=== PATIENT | male | born 1945 | race African-American/Black ===

== ENCOUNTER 2019-01-04 15:33 | Emergency (ER) | payer MEDICARE, OTHER ==
[~2019-01-04] VITALS: Ht 172.7 cm; Wt 73.9 kg
[2019-01-04] MEDS ORDERED: ALLOPURINOL 10100 M1 PO (15:44)
[2019-01-04] MEDS ORDERED: CARDIZEM CD240 MG PO (15:45)
[2019-01-04] MEDS ORDERED: LISINOPRIL40 MG PO (15:45)
[2019-01-04] MEDS ORDERED: ASPIRIN325 PO (15:45)
[2019-01-04] MEDS ORDERED: PREVACID15 MG PO (15:46)
[2019-01-04] MEDS ORDERED: TERAZOSIN HCL10 MG PO (15:46)
[2019-01-04 16:29] LABS: HEMATOCRIT 31.4 % (42.0-52.0); NUCLEATED RBCS 0 /100WBC
[2019-01-04 16:31] LABS: ABSOLUTE BASOPHILS 0.1 thou/uL (0.0-0.2); ABSOLUTE EOSINOPHILS 0.4 thou/uL (0.0-0.7); ABSOLUTE MONOCYTES 0.5 thou/uL (0.0-1.2); ABSOLUTE NEUTROPHILS 2.9 thou/uL (1.6-8.1); BASOPHILS 2.2 %; EOSINOPHILS 8.6 %; HEMOGLOBIN 9.9 gm/dL (14.0-18.0); LYMPHOCYTES 19.6 %; MCH 24.5 pg (26.0-34.0); MCHC 31.5 g/dL (28.0-37.0); MCV 77.5 fL (80.0-100.0); MONOCYTES 10.6 %; MPV 10.1 fl. (7.2-11.1); PLATELET COUNT* 211 thou/uL (150-400); RBC 4.05 mil/uL (4.50-6.00); RDW-CV 16.7 % (10.5-14.5); WBC 4.9 thou/uL (4.0-11.0)
[2019-01-04 16:38] LABS: APTT 36.1 Seconds (25.0-31.3); INR 1.1
[2019-01-04 16:51] LABS: ALBUMIN 3.5 g/dL (3.4-5.0); ALKALINE PHOSPHATASE 78 U/L (46-116); ANION GAP 14 mmol/L (7-16); BUN 52 mg/dL (7-18); CALCIUM 8.4 mg/dL (8.5-10.1); CHLORIDE 103 mmol/L (98-107); CO2 24 mmol/L (21-32); CREATININE 9.8 mg/dL (0.6-1.3); GLUCOSE 88 mg/dL (70-99); NT-PRO BRAIN NAT PEPTIDE > 35000 pg/mL (<300); POTASSIUM 5.1 mmol/L (3.5-5.1); SGOT 13 U/L (15-37); SGPT 10 U/L (30-65); SODIUM 141 mmol/L (136-145); TOTAL BILIRUBIN 0.3 mg/dL (<0.1-1.0); TOTAL PROTEIN 6.8 g/dL (6.4-8.2)
[2019-01-04 17:33] VITALS: BP 128/83
--- NOTE | 2019-01-05 13:41 | EKG ---
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: : 1945 Requested By: Harshad Lawson Order Number: [id number] MD: Kye Ayoub Measurements Intervals [place] Rate: 74 P: -2 MA: 226 QRS: -64 QRSD: 133 T: 108 QT: 410 QTc: 455 Interpretive Statements Sinus rhythm Prolonged MA interval Probable left atrial enlargement Nonspecific intraventricular conduction delay Inferior infarct, old, possible Anterior ST elevation, probably due to LVH Baseline wander in lead(s) V6 No previous ECG available for comparison Electronically Signed On 01-05-2019 13:40:50 CDT by Kye Ayoub [email or web address] <ELECTRONICALLY SIGNED> By: Kye Ayoub MD, FACC 01/05/19 1340 1600 1600 Kye Ayoub MD, FAC /EPI
== END 2019-01-04 17:35 | disposition home or self-care (01) ==
LOC: M.ERS 15:33
PROVIDERS: Family Medicine
DX: I10 Essential (primary) hypertension (principal); Z77.22 Contact with and (suspected) exposure to environmental tobacco smoke (acute) (chronic); Z96.653 Presence of artificial knee joint, bilateral

== ENCOUNTER 2019-03-18 10:11 | Emergency (ER) | payer MEDICARE, OTHER ==
[~2019-03-18] VITALS: Ht 165.1 cm; Wt 74.8 kg
[~2019-03-18 10:11] MED LIST: ALLOPURINOL 10100 M1 PO; ASPIRIN325 PO; CARDIZEM CD240 MG PO; LISINOPRIL40 MG PO; PREVACID15 MG PO; TERAZOSIN HCL10 MG PO
[2019-03-18] MEDS ORDERED: HYDRALAZINE 2525 MG (10:23)
[2019-03-18 10:50] LABS: URINE BILIRUBIN NEGATIVE (Negative); URINE BLOOD NEGATIVE (Negative); URINE CLARITY CLEAR; URINE COLOR YELLOW; URINE GLUCOSE-RANDOM NEGATIVE (Negative); URINE KETONES NEGATIVE (Negative); URINE LEUKOCYTES-REFLEX NEGATIVE (Negative); URINE NITRITE-REFLEX NEGATIVE (Negative); URINE PROTEIN 2+ (Negative); URINE SPECIFIC GRAVITY 1.015 (1.005-1.030); URINE UROBILINOGEN 0.2 E.U./dl (0.2-1.0)
[2019-03-18 11:17] LABS: SQUAMOUS 0-3 Few /LPF (0-3); URINE WBC-REFLEX 0-5 Rare /HPF (0-5)
[2019-03-18 11:18] LABS: BACTERIA-REFLEX 1-9 Few /HPF (None Seen); CASTS None Seen /LPF (None Seen); CRYSTALS None Seen /LPF (None Seen); MUCUS None Seen strn/LPF (None Seen); URINE RBC 0-2 Rare /HPF (0-2)
[2019-03-18 11:56] VITALS: BP 145/89
== END 2019-03-18 11:56 | disposition home or self-care (01) ==
LOC: M.ERS 10:11
PROVIDERS: Family Medicine
DX: N50.812 Left testicular pain (principal); N50.811 Right testicular pain; I10 Essential (primary) hypertension; Z77.22 Contact with and (suspected) exposure to environmental tobacco smoke (acute) (chronic); Z96.653 Presence of artificial knee joint, bilateral

== ENCOUNTER 2019-07-22 03:47 | Inpatient (IN) | payer MEDICARE, OTHER ==
[~2019-07-22] VITALS: Ht 172.7 cm; Wt 70.8 kg
[~2019-07-22 03:47] MED LIST changes: +HYDRALAZINE 2525 MG
[2019-07-22 03:55] VITALS: BP 109/54
[2019-07-22] MEDS ORDERED: LITE COAT ASPI325 MG PO (04:00)
[2019-07-22 04:28] LABS: ABSOLUTE BASOPHILS 0.1 thou/uL (0.0-0.2); ABSOLUTE EOSINOPHILS 0.2 thou/uL (0.0-0.7); ABSOLUTE LYMPHOCYTES 1.1 thou/uL (0.8-5.3); ABSOLUTE MONOCYTES 0.7 thou/uL (0.0-1.2); ABSOLUTE NEUTROPHILS 5.5 thou/uL (1.6-8.1); EOSINOPHILS 3.3 %; HEMATOCRIT 25.3 % (42.0-52.0); HEMOGLOBIN 8.1 gm/dL (14.0-18.0); LYMPHOCYTES 14.1 %; MCH 24.9 pg (26.0-34.0); MCHC 32.2 g/dL (28.0-37.0); MCV 77.4 fL (80.0-100.0); MONOCYTES 9.1 %; NUCLEATED RBCS 0 /100WBC; PLATELET COUNT* 140 thou/uL (150-400); POLYS 72.5 %; RBC 3.27 mil/uL (4.50-6.00); RDW-CV 16.8 % (10.5-14.5); WBC 7.5 thou/uL (4.0-11.0)
[2019-07-22 04:40] LABS: ANION GAP 10 mmol/L (7-16); BUN 27 mg/dL (7-18); CALCIUM 8.3 mg/dL (8.5-10.1); CHLORIDE 103 mmol/L (98-107); CO2 31 mmol/L (21-32); CREATININE 7.5 mg/dL (0.6-1.3); GLUCOSE 107 mg/dL (70-99); POTASSIUM 4.1 mmol/L (3.5-5.1); SODIUM 144 mmol/L (136-145)
[2019-07-22 04:42] LABS: APTT 29.4 Seconds (25.0-31.3); INR 1.1; PROTIME 11.3 Seconds (9.20-11.50)
[2019-07-22 04:49] LABS: ALBUMIN 3.1 g/dL (3.4-5.0); ALKALINE PHOSPHATASE 58 U/L (46-116); LIPASE 57 U/L (73-393); SGOT 8 U/L (15-37); SGPT 9 U/L (30-65); TOTAL BILIRUBIN 0.4 mg/dL (<0.1-1.0); TOTAL PROTEIN 5.7 g/dL (6.4-8.2); TROPONIN-I LEVEL <0.06 ng/mL (<0.06)
[2019-07-22 05:19] LABS: URINE BILIRUBIN NEGATIVE (Negative); URINE BLOOD TRACE (Negative); URINE CLARITY CLEAR; URINE COLOR YELLOW; URINE GLUCOSE-RANDOM NEGATIVE (Negative); URINE KETONES NEGATIVE (Negative); URINE LEUKOCYTES-REFLEX TRACE (Negative); URINE NITRITE-REFLEX NEGATIVE (Negative); URINE PROTEIN 2+ (Negative); URINE SPECIFIC GRAVITY <= 1.005 (1.005-1.030); URINE UROBILINOGEN 0.2 E.U./dl (0.2-1.0)
[2019-07-22 05:41] LABS: CASTS None Seen /LPF (None Seen); SQUAMOUS 0-3 Few /LPF (0-3)
[2019-07-22 05:42] LABS: BACTERIA-REFLEX 1-9 Few /HPF (None Seen); CRYSTALS None Seen /LPF (None Seen); URINE RBC 0-2 Rare /HPF (0-2); URINE WBC-REFLEX 6-15 Few /HPF (0-5)
[2019-07-22 06:10] VITALS: BP 96/70
[2019-07-22 06:30] VITALS: BP 123/74
[2019-07-22 07:30] VITALS: BP 132/78
--- NOTE | 2019-07-22 07:30 | NUR ---
PT ARRIVED TO THE UNIT AT 0630. VITALS STABLE RA. ADMISSION HISTORY COMPLETED. WILL CONTINUE TO MONITOR.
[2019-07-22 10:42] LABS: HEMATOCRIT 24.3 % (42.0-52.0); HEMOGLOBIN 7.7 gm/dL (14.0-18.0); MCH 24.6 pg (26.0-34.0); MCHC 31.7 g/dL (28.0-37.0); MCV 77.6 fL (80.0-100.0); MPV 9.5 fl. (7.2-11.1); RBC 3.13 mil/uL (4.50-6.00); RDW-CV 16.6 % (10.5-14.5); WBC 6.5 thou/uL (4.0-11.0)
[2019-07-22 15:50] LABS: ABSOLUTE BASOPHILS 0.1 thou/uL (0.0-0.2); ABSOLUTE EOSINOPHILS 0.3 thou/uL (0.0-0.7); ABSOLUTE LYMPHOCYTES 1.2 thou/uL (0.8-5.3); ABSOLUTE MONOCYTES 0.7 thou/uL (0.0-1.2); ABSOLUTE NEUTROPHILS 5.2 thou/uL (1.6-8.1); BASOPHILS 1.6 %; EOSINOPHILS 3.9 %; HEMATOCRIT 24.7 % (42.0-52.0); LYMPHOCYTES 16.5 %; MCH 25.1 pg (26.0-34.0); MCHC 32.4 g/dL (28.0-37.0); MCV 77.2 fL (80.0-100.0); MONOCYTES 8.8 %; MPV 9.1 fl. (7.2-11.1); NUCLEATED RBCS 0 /100WBC; PLATELET COUNT* 143 thou/uL (150-400); POLYS 69.2 %; RBC 3.19 mil/uL (4.50-6.00); RDW-CV 16.3 % (10.5-14.5); WBC 7.5 thou/uL (4.0-11.0)
[2019-07-22 17:10] LABS: PLATELET ESTIMATE DECREASED
[2019-07-22 17:11] LABS: ANISOCYTOSIS 1+; MICROCYTES 1+; OVALOCYTES 2+
[2019-07-22 17:12] LABS: HYPOCHROMASIA Occasional; TEARDROPS 1+
[2019-07-22 17:13] LABS: TARGET CELLS Occasional
--- NOTE | 2019-07-22 17:33 | NUR ---
ASSUMED CARE OF PATIENT AT APPROX 0730. ALERT AND ORIENTED X4. ASSESSMENT COMPLETED AND CHARTED. VSS ON ROOM AIR. NO COMPLAINTS OF PAIN, NAUSEA, OR SOA. FLUIDS AND ANTIBIOTICS INFUSED ORDERED. SALINE LOCK ORDERED BY NEPHROLOGY. ATTEMPTS TO CONTACT TO RECONCILE HOME MEDS HAVE BEEN UNSECCESSFUL, LEFT VOICEMAILS WITH NO CALL BACK. PATIENT IS NOT SURE OF WHAT HE TAKES AND ASKED TO HAVE HIS VERIFY. PATIENT IS UP AD ROLANDO IN THE ROOM. ONE BOWEL MOVEMENT THIS SHIFT WITH NOTED SMALL BLOOD CLOTS IN STOOL. CALL LIGHT PLACED IN REACH. HOURLY ROUNDS COMPLETED. WILL CONTINUE TO MONITOR.
[2019-07-22 19:45] VITALS: BP 140/75
[2019-07-22] MEDS ORDERED: XALATAN2.5 ML OPHTHALMIC (21:10)
[2019-07-22] MEDS ORDERED: TIMOLOL 0.5%-DO10 ML OPHTHALMIC (21:14)
[2019-07-22] MEDS ORDERED: COSOPT PF EYE1 EACH OPHTHALMIC (21:19)
[2019-07-23 03:45] VITALS: BP 116/66
--- NOTE | 2019-07-23 04:34 | NUR ---
PATIENT HAS REMAINED ALERT AND ORIENTED X 4 THROUGHOUT THE SHIFT AND RESTING QUIETLY AT INTERVALS ON HOURLY ROUNDS. UP IN CHAIR UNTIL 2200 AND THEN BACK UP SLEEPING IN CHAIR AFTER 0200. PATIENT UP SBA IN ROOM AND TO BR. STATED HE HAD ONE STOOL PRIOR TO SHIFT CHANGE THAT WASN'T DIARRHEA AND NO BLOOD WAS OBSERVED. UNFORTUNATELY THIS WAS FLUSHED WITHOUT BEING SEEN BY NURSING. SOME OF PATIENT'S HOME BP MEDICATIONS RESUMED. IV ANTIBIOTICS PER ORDER. PATIENT STATES HE IS FEELING WELL AND HOPES TO GO HOME TODAY. CONTINUE TO MONITOR.
[2019-07-23 07:20] VITALS: BP 133/77
[2019-07-23 08:19] LABS: HEMATOCRIT 21.7 % (42.0-52.0); MCH 24.9 pg (26.0-34.0); MCHC 32.3 g/dL (28.0-37.0); MCV 77.3 fL (80.0-100.0); MPV 9.4 fl. (7.2-11.1); RBC 2.81 mil/uL (4.50-6.00); RDW-CV 16.5 % (10.5-14.5); WBC 6.5 thou/uL (4.0-11.0)
[2019-07-23] MEDS ORDERED: FLAGYL500 M1 PO (08:44)
[2019-07-23] MEDS ORDERED: CIPRO500 MG PO (08:44)
--- NOTE | 2019-07-23 10:42 | EKG ---
[place] [address] ELECTROCARDIOGRAM REPORT Name: SHEKHAR SCHILLING Room: [address] ADM IN M.R.#: [id number] Admission: 07/22/19 Attend Phys: Georgina Apodaca MD Discharge: Date of : 41 Report #: [id number] THIS REPORT FOR: //name// [facility] ED Test Date: 2019-07-22 Test Time: 04:08:53 Pat Name: SHEKHAR SCHILLING Department: Room: [facility] Gender: M Glove Maker: THONG : 1945 Requested By: Harshad Lawson Order Number: [id number] MD: Kye Ayoub Measurements Intervals [place] Rate: 79 P: -6 HI: 262 QRS: -66 QRSD: 138 T: 96 QT: 410 QTc: 471 Interpretive Statements Sinus rhythm Paired ventricular premature complexes Prolonged HI interval Nonspecific IVCD with LAD Left ventricular hypertrophy Anterior infarct, old Compared to ECG 01/04/2019 16:00:38 Ventricular premature complex(es) now present ST (T wave) deviation no longer present Myocardial infarct finding still present Electronically Signed On 07-23-2019 10:41:51 CDT by Kye Ayoub [email or web address] <ELECTRONICALLY SIGNED> By: Kye Ayoub MD, FAC 07/23/19 1041 7 7 Kye Ayoub MD, [facility] /EPI
[2019-07-23 13:11] VITALS: BP 133/77
--- NOTE | 2019-07-23 16:03 | NUR ---
ASSUMED CARE OF PATIENT AT APROX 0730. ALERT AND ORIENTED X4. ASSESSMENT COMPLETED AND CHARTED. VSS ON ROOM AIR. NO COMPLAINTS OF PAIN, NAUSEA, OR SOA. PATIENT ONLY HAD ONE STOOL THIS SHIFT. ANTIBIOTICS INFUSED ORDERED. LABS SHOWED STABLE HGB THIS AFTERNOON;7.0. PATIENT CLEARED TO DISCHARGE AND FOLLOW UP OUTPATIENT. DISCHARGED AT 1425 WITH ALL PERSONAL BELONGINGS, PRESCRIPTIONS AND DISCHARGE INFORMATION.
[2019-07-24] MEDS ORDERED: RENVELA800 MG PO (10:05)
--- NOTE | 2019-07-28 11:18 | CON ---
[address] [address] CONSULTATION Name: SCHILLINGSHEKHAR VIDES Room: [address] IN M.R.#: [id number] Admission: 07/22/19 Attend Phys: Georgina Apodaca MD Discharge: 07/23/19 Date of : 41 Report #: [id number] THIS REPORT FOR: //name// CC: Salvador Apodaca HISTORY OF PRESENT ILLNESS: This is a pleasant 73-year-old gentleman with past medical history significant for hypertension, hyperlipidemia, end-stage renal disease on dialysis, who is presenting for evaluation of diarrhea and bright red blood per rectum. The patient reports that he began noticing diarrhea yesterday followed by one episode of bright red blood per rectum. The patient reports it was small to medium sized in volume and this prompted his visit to the hospital. The patient was noted to have a baseline hemoglobin of 9 and on presentation it was 8. Following hospitalization earlier today he had another episode of bright red blood per rectum. The patient denies similar episodes in the past. He reports he had a colonoscopy 3 years back, which was unremarkable. This was done in [place]. PAST MEDICAL HISTORY: Hypertension, hyperlipidemia, end-stage renal disease. PAST SURGICAL HISTORY: The patient has a fistula placement, bilateral knee replacement, left arm surgery. SOCIAL HISTORY: The patient denies smoking, alcohol or recreational drug use. FAMILY HISTORY: There is no family history of colon cancer, ____ neoplasia. REVIEW OF SYSTEMS: Comprehensive 10-point review of systems is negative except for what was mentioned in the HPI. PHYSICAL EXAMINATION: VITAL SIGNS: Temperature 36.6, pulse rate 74, blood pressure 132/78, respiratory rate 17. GENERAL: The patient is alert, awake, oriented x 3. HEENT: Pupils are equal, round, reactive to light and accommodation. Mucous membranes are moist. There is no congestion. LUNGS: Clear to auscultation bilaterally. CARDIOVASCULAR: Rate and rhythm regular, S1, S2 present. ABDOMEN: Soft. There is no distention, guarding or rigidity. EXTREMITIES: Warm, well perfused. LABORATORY DATA: Hemoglobin 7.7, hematocrit 24.3, platelet count 139. WBC count 6.5. Sodium 144, potassium 4.1, chloride 103, bicarbonate 31, BUN 27, creatinine 7.5, total bilirubin 0.4, AST 8, ALT 9, alkaline phosphatase 58, albumin 3.1, lipase 57. IMAGING: Abdomen and pelvis CT demonstrate extensive colonic diverticulosis, [place] [address] CONSULTATION Name: SHEKHAR SCHILLING Room: [address]#: [id number] Admission: 07/22/19 Attend Phys: Georgina Apodaca MD Discharge: 07/23/19 Date of : 41 Report #: [id number] most severe in the descending and sigmoid colon with mild acute diverticulitis along the medial wall of the descending colon. No perforation or abscess. Innumerable hepatic and renal cysts with atrophic kidneys. 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 Enlarged prostate with circumferential bladder wall thickening. ASSESSMENT AND PLAN: A pleasant 73-year-old gentleman presenting with diarrhea and hematochezia. CT demonstrates evidence of mild diverticulitis. We would recommend continuing Cipro and Flagyl for a total of 10 days. We would recommend getting an outpatient colonoscopy in 6-8 weeks' time to follow up on this episode. We will monitor his hemoglobin in the p.m., if his hemoglobin drops below 7, we may consider doing colonoscopy while he is here. Thank you for this consultation. <ELECTRONICALLY SIGNED> By: Jim Flowers MD 07/28/19 1118 1120 57Jim Flowers MD /nt
--- NOTE | 2019-08-01 10:19 | CON ---
[address] [address] CONSULTATION Name: SHEKHAR SCHILLING Room: [address] IN .R.#: [id number] Admission: 07/22/19 Attend Phys: Georgina Apodaca MD Discharge: 07/23/19 Date of : 41 Report #: [id number] THIS REPORT FOR: //name// CC: Salvador Apodaca DATE OF SERVICE: 07/22/2019 REQUESTING PHYSICIAN: Dr. Apodaca. REASON FOR CONSULTATION: Assist in providing dialysis. HISTORY OF PRESENT ILLNESS: The patient is a very pleasant 73-year-old gentleman with medical history significant for hypertension, end-stage renal disease, presents with complaints of some diarrhea that started day prior to admission and he states that he saw some blood in his stool. Diarrhea has resolved now. No chest pain, no shortness of breath, no nausea, no vomiting. The patient has chronic dialysis on Wednesday, Wednesday, and Wednesday schedule and did have his dialysis yesterday. SOCIAL HISTORY: No current tobacco or alcohol abuse. FAMILY HISTORY: Noncontributory. MEDICATIONS PRIOR TO ADMISSION: Reviewed. PAST MEDICAL HISTORY: As I mentioned earlier. PHYSICAL EXAMINATION: GENERAL: Awake, alert, and oriented, in no acute distress. VITAL SIGNS: His blood pressure is 132/78, heart rate 74, afebrile. HEENT: Pupils are round. NECK: Supple. LUNGS: Clear. CARDIOVASCULAR: Regular rate. ABDOMEN: Soft. EXTREMITIES: Lower extremities, no edema. He has right upper arm dialysis access. LABORATORY DATA: Hemoglobin is 7.7. His serum sodium is 144, potassium 4.1, BUN is 27, and creatinine 7.5. ASSESSMENT: 1. End-stage renal disease, dialysis on Wednesday, Wednesday, and Wednesday schedule. 2. Hypertension[place] [address] CONSULTATION Name: SHEKHAR SCHILLING Room: [address]#: [id number] Admission: 07/22/19 Attend Phys: Georgina Apodaca MD Discharge: 07/23/19 Date of : 41 Report #: [id number] 3. Gastrointestinal bleed. PLAN: 1. Dialysis on Wednesday. 2. GI bleed will be assessed and treated by GI doctor. It seems to have stopped now, the patient is hemodynamically stable. I am planning to stop IV fluids. <ELECTRONICALLY SIGNED> By: Mack Campos MD 08/01/19 1019 1532 [id number] Campos MD /nt
== END 2019-07-23 14:25 | disposition home or self-care (01) | DRG 377 ==
LOC: M.ERS 03:47 → M.ORTHSURG 05:32 → M.TBA-ER 05:32 → M.ORTHSURG 06:20
PROVIDERS: Family Medicine; Internal Medicine Gastroenterology; ADMIT Internal Medicine
DX: K57.33 Diverticulitis of large intestine without perforation or abscess with bleeding (principal); N18.6 End stage renal disease; I12.0 Hypertensive chronic kidney disease with stage 5 chronic kidney disease or end stage renal disease; D64.9 Anemia, unspecified; I71.4 Abdominal aortic aneurysm, without rupture; N40.0 Benign prostatic hyperplasia without lower urinary tract symptoms; Z96.653 Presence of artificial knee joint, bilateral; E78.5 Hyperlipidemia, unspecified; Z99.2 Dependence on renal dialysis; Z79.82 Long term (current) use of aspirin; Z79.899 Other long term (current) drug therapy

== ENCOUNTER 2019-07-24 03:18 | Inpatient (IN) | payer MEDICARE, OTHER ==
[~2019-07-24] VITALS: Ht 172.7 cm; Wt 73.9 kg
[2019-07-24] VITALS (38 sets, daily range): BP systolic 92–162; BP diastolic 40–84
[~2019-07-24 03:18] MED LIST changes: +CIPRO500 MG PO; +COSOPT PF EYE1 EACH OPHTHALMIC; +FLAGYL500 M1 PO; +LITE COAT ASPI325 MG PO; +TIMOLOL 0.5%-DO10 ML OPHTHALMIC; +XALATAN2.5 ML OPHTHALMIC
[2019-07-24 03:52] LABS: ABSOLUTE BASOPHILS 0.1 thou/uL (0.0-0.2); ABSOLUTE EOSINOPHILS 0.3 thou/uL (0.0-0.7); ABSOLUTE LYMPHOCYTES 0.8 thou/uL (0.8-5.3); ABSOLUTE MONOCYTES 0.5 thou/uL (0.0-1.2); ABSOLUTE NEUTROPHILS 4.3 thou/uL (1.6-8.1); EOSINOPHILS 5.5 %; LYMPHOCYTES 13.2 %; MCH 24.9 pg (26.0-34.0); MCHC 32.1 g/dL (28.0-37.0); MCV 77.7 fL (80.0-100.0); MONOCYTES 8.6 %; MPV 8.9 fl. (7.2-11.1); NUCLEATED RBCS 0 /100WBC; PLATELET COUNT* 124 thou/uL (150-400); POLYS 71.7 %; RBC 2.32 mil/uL (4.50-6.00); RDW-CV 16.4 % (10.5-14.5)
[2019-07-24 03:56] LABS: HEMOGLOBIN 5.8 gm/dL (14.0-18.0)
[2019-07-24 04:06] LABS: CALCIUM 7.1 mg/dL (8.5-10.1); POTASSIUM 4.4 mmol/L (3.5-5.1)
[2019-07-24 04:10] LABS: ALBUMIN 2.7 g/dL (3.4-5.0); CREATININE 12.1 mg/dL (0.6-1.3); TOTAL BILIRUBIN 0.2 mg/dL (<0.1-1.0); TOTAL PROTEIN 5.1 g/dL (6.4-8.2)
[2019-07-24 04:27] LABS: INR 1.1; PROTIME 11.4 Seconds (9.20-11.50)
[2019-07-24 06:32] LABS: HYPOCHROMASIA 2+; MICROCYTES 1+; PLATELET ESTIMATE DECREASED
[2019-07-24 06:35] LABS: OVALOCYTES 1+
[2019-07-24 06:36] LABS: ANISOCYTOSIS 1+; POIKILOCYTOSIS 1+; POLYCHROMASIA 1+
[2019-07-24] MEDS ORDERED: RENVELA800 MG PO (10:05)
--- NOTE | 2019-07-24 11:28 | EKG ---
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: RT : 1945 Requested By: Georgina Apodcaa Order Number: [id number] MD: Salvador Velazco Measurements Intervals [place] Rate: 69 P: -4 ME: 211 QRS: -67 QRSD: 149 T: 87 QT: 448 QTc: 480 Interpretive Statements Sinus rhythm left axis Left bundle branch block Baseline wander in lead(s) V1 Compared to ECG 07/22/2019 04:08:53 Ventricular premature complex(es) no longer present Electronically Signed On 07-24-2019 11:28:28 CDT by Salvador Velazco [email or web address] <ELECTRONICALLY SIGNED> By: Salvador Velazco MD, [facility] 07/24/19 1128 1112 1112 Salvador Velazco MD, [facility] /EPI
[2019-07-25] VITALS (22 sets, daily range): BP systolic 90–138; BP diastolic 38–74
[2019-07-25 05:49] LABS: HEMATOCRIT 23.3 % (42.0-52.0); HEMOGLOBIN 7.7 gm/dL (14.0-18.0); MCH 26.4 pg (26.0-34.0); MCHC 32.9 g/dL (28.0-37.0); MCV 80.4 fL (80.0-100.0); MPV 8.7 fl. (7.2-11.1); RBC 2.9 mil/uL (4.50-6.00); RDW-CV 17.6 % (10.5-14.5); WBC 6.5 thou/uL (4.0-11.0)
[2019-07-25 06:05] LABS: ALBUMIN 2.7 g/dL (3.4-5.0); CALCIUM 7.8 mg/dL (8.5-10.1); MAGNESIUM 1.7 mg/dL (1.8-2.4); POTASSIUM 4.1 mmol/L (3.5-5.1); TOTAL BILIRUBIN 0.5 mg/dL (<0.1-1.0); TOTAL PROTEIN 5.2 g/dL (6.4-8.2)
[2019-07-25 06:08] LABS: CREATININE 7.3 mg/dL (0.6-1.3)
[2019-07-25 11:13] LABS: HEPATITIS B SURFACE AG Negative (Negative)
--- NOTE | 2019-07-25 14:03 | CON ---
[address] [address] CONSULTATION Name: TONIESHEKHAR VIDES Room: [address] IN M.R.#: [id number] Admission: 07/24/19 Attend Phys: Georgina Apodaca MD Discharge: Date of : 41 Report #: [id number] THIS REPORT FOR: //name// CC: Salvador Apodaca DICTATED BY: Misa Blum [facility] DATE OF SERVICE: 07/24/2019 Please note at the time of this dictation, the patient was seen and physically examined by myself. REASON FOR CONSULTATION: Hematochezia, GI bleed. HISTORY OF PRESENT ILLNESS: This is a pleasant 73-year-old male who was seen on the for diverticulitis and some hematochezia which had resolved. His pain had almost diminished and was feeling significantly better, so he was discharged yesterday afternoon. The patient states he went home, was having no issues. He had a little bit of cramping and early in the morning, he awakened and had to go the bathroom and noticed some blood. On admission, his hemoglobin was 5.8. He has received a unit of blood and hemoglobin is pending after an hour after that has been infused. The patient states he had a colonoscopy several years ago. He had two in a very short period of time at [facility] in [place], [place] in which he states he had the exact same episode occurred at that time. He does deny taking any NSAIDs. He is not on any blood thinners. He has no abdominal pain at this time and he was tolerating a diet. He had an upper scope back in his 20s, but he has had no issues since then. He does have a history of GERD, which he takes medicine for, but he is not having any issues with that at that time. ALLERGIES: No known drug allergies. MEDICATIONS: From home include allopurinol, diltiazem, hydralazine, Prevacid, Xalatan, Cosopt, Cipro and metronidazole that he was sent home on orally. PAST MEDICAL HISTORY: Hypertension, renal disease on dialysis, history of cataracts. PAST SURGICAL HISTORY: He has had a total knee replacement. FAMILY HISTORY: Mother, ovarian cancer. SOCIAL HISTORY: , at bedside. Denies any alcohol, tobacco [place] [address] CONSULTATION Name: SHEKHAR SCHILLING Room: [address]#: [id number] Admission: 07/24/19 Attend Phys: Georgina Apodaca MD Discharge: Date of : 41 Report #: [id number] REVIEW OF SYSTEMS: Twelve-point review of systems is essentially negative except what is mentioned in the HPI. PHYSICAL EXAMINATION: VITAL SIGNS: Temperature 36.8, pulse 68, respirations 16, blood pressure 101/65. HEART: Regular rate and rhythm. LUNGS: Clear. ABDOMEN: Soft, positive bowel sounds in all 4 quadrants with no masses or tenderness noted. LABORATORY DATA: Hemoglobin on admission 5.8, white count is 6, platelets 124. PT 11.4, INR 1.1, GFR is 5, BUN is 53, creatinine 12.1. CT was essentially negative except showed some mild acute diverticulitis, still noted in the distal descending colon with no perforation noted. IMPRESSION: 1. Gastrointestinal bleed. 2. Diverticulitis. 3. History of gastroesophageal reflux disease. 4. Acute anemia. 5. Thrombocytopenia. 6. Chronic kidney disease and on dialysis. PLAN: 1. EGD today with Dr. Howard. 2. We will continue his antibiotics. 3. Further recommendations to be made once the procedure has been performed. Thank you for allowing us to participate in this patient's care. Please do not hesitate to call with any questions in regard to this consult. <ELECTRONICALLY SIGNED> By: Tamara Howard MD 07/25/19 1403 1043 1242Tamara Howard MD /nt
[2019-07-25 14:55] LABS: HEMATOCRIT 24.1 % (42.0-52.0); HEMOGLOBIN 7.9 gm/dL (14.0-18.0)
[2019-07-26] VITALS (43 sets, daily range): BP systolic 108–148; BP diastolic 56–84
[2019-07-26 02:34] LABS: HEMATOCRIT 21.5 % (42.0-52.0); MCH 26.3 pg (26.0-34.0); MCHC 32.5 g/dL (28.0-37.0); MCV 81.1 fL (80.0-100.0); MPV 9.2 fl. (7.2-11.1); RBC 2.65 mil/uL (4.50-6.00); RDW-CV 17.4 % (10.5-14.5); WBC 5.8 thou/uL (4.0-11.0)
[2019-07-26 02:37] LABS: CALCIUM 7.7 mg/dL (8.5-10.1); MAGNESIUM 1.7 mg/dL (1.8-2.4); POTASSIUM 4.4 mmol/L (3.5-5.1)
[2019-07-26 02:39] LABS: CREATININE 8.9 mg/dL (0.6-1.3)
[2019-07-26 03:01] LABS: ALBUMIN 2.6 g/dL (3.4-5.0); CALCIUM 7.6 mg/dL (8.5-10.1); CREATININE 8.9 mg/dL (0.6-1.3); PHOSPHORUS* 6.8 mg/dL (2.5-4.9); POTASSIUM 4.5 mmol/L (3.5-5.1)
[2019-07-26 12:46] LABS: HEMATOCRIT 25.7 % (42.0-52.0); HEMOGLOBIN 8.5 gm/dL (14.0-18.0); MCH 26.8 pg (26.0-34.0); MCHC 33.1 g/dL (28.0-37.0); MPV 8.5 fl. (7.2-11.1); RBC 3.17 mil/uL (4.50-6.00); RDW-CV 17.8 % (10.5-14.5); WBC 8.1 thou/uL (4.0-11.0)
[2019-07-26 19:38] LABS: HEMATOCRIT 24.3 % (42.0-52.0); HEMOGLOBIN 8.2 gm/dL (14.0-18.0)
[2019-07-27] VITALS: BP 138/68; BP 140/68
[2019-07-27 04:30] LABS: HEMATOCRIT 27.2 % (42.0-52.0); HEMOGLOBIN 8.9 gm/dL (14.0-18.0); MCH 26.8 pg (26.0-34.0); MCHC 32.8 g/dL (28.0-37.0); MCV 81.7 fL (80.0-100.0); MPV 9.2 fl. (7.2-11.1); RBC 3.33 mil/uL (4.50-6.00); RDW-CV 17.5 % (10.5-14.5); WBC 7.9 thou/uL (4.0-11.0)
[2019-07-27 04:51] LABS: ALBUMIN 2.9 g/dL (3.4-5.0); CALCIUM 8.1 mg/dL (8.5-10.1); MAGNESIUM 1.8 mg/dL (1.8-2.4); POTASSIUM 4.1 mmol/L (3.5-5.1); TOTAL BILIRUBIN 0.6 mg/dL (<0.1-1.0); TOTAL PROTEIN 5.4 g/dL (6.4-8.2)
[2019-07-27 04:56] LABS: CREATININE 7.3 mg/dL (0.6-1.3)
[2019-07-27 08:00] VITALS: BP 133/71
[2019-07-27 11:37] VITALS: BP 138/74
[2019-07-27 13:15] LABS: HEMATOCRIT 28.2 % (42.0-52.0); HEMOGLOBIN 9.3 gm/dL (14.0-18.0)
[2019-07-27 16:21] VITALS: BP 126/66
[2019-07-27 20:00] VITALS: BP 140/74
[2019-07-28] VITALS: BP 133/70
[2019-07-28 04:00] VITALS: BP 128/69
[2019-07-28 05:20] LABS: HEMATOCRIT 23.3 % (42.0-52.0); HEMOGLOBIN 7.7 gm/dL (14.0-18.0); MCH 27.3 pg (26.0-34.0); MCHC 33.2 g/dL (28.0-37.0); MCV 82.2 fL (80.0-100.0); MPV 8.9 fl. (7.2-11.1); RBC 2.83 mil/uL (4.50-6.00); RDW-CV 18.2 % (10.5-14.5); WBC 6.4 thou/uL (4.0-11.0)
[2019-07-28 05:45] LABS: ALBUMIN 2.6 g/dL (3.4-5.0); CALCIUM 7.7 mg/dL (8.5-10.1); MAGNESIUM 1.9 mg/dL (1.8-2.4); POTASSIUM 4.2 mmol/L (3.5-5.1); TOTAL BILIRUBIN 0.4 mg/dL (<0.1-1.0); TOTAL PROTEIN 4.9 g/dL (6.4-8.2)
[2019-07-28 08:00] VITALS: BP 146/78
[2019-07-28 09:42] VITALS: BP 146/78
== END 2019-07-28 10:15 | disposition home or self-care (01) | DRG 377 ==
LOC: M.ERS 03:18 → M.ICU 05:49 → M.TBA-ER 05:49 → M.ICU 07:58 → M.2W 07-26 16:27
PROVIDERS: Emergency Medicine; Internal Medicine Gastroenterology; Internal Medicine Nephrology; Nurse Practitioner Adult Health; ADMIT Internal Medicine
PROC: 0DBM8ZZ Excision of Descending Colon, Via Natural or Artificial Opening Endoscopic (ICD-10-PCS; principal; 2019-07-25)
PROC: 0W3P8ZZ Control Bleeding in Gastrointestinal Tract, Via Natural or Artificial Opening Endoscopic (ICD-10-PCS; principal; 2019-07-25)
PROC: 30233N1 Transfusion of Nonautologous Red Blood Cells into Peripheral Vein, Percutaneous Approach (ICD-10-PCS; 2019-07-26)
PROC: 5A1D70Z Performance of Urinary Filtration, Intermittent, Less than 6 Hours Per Day (ICD-10-PCS; 2019-07-26)
PROC: 5A1D70Z Performance of Urinary Filtration, Intermittent, Less than 6 Hours Per Day (ICD-10-PCS; 2019-07-28)
DX: K57.33 Diverticulitis of large intestine without perforation or abscess with bleeding (principal); N18.6 End stage renal disease; I12.0 Hypertensive chronic kidney disease with stage 5 chronic kidney disease or end stage renal disease; D62 Acute posthemorrhagic anemia; Z96.653 Presence of artificial knee joint, bilateral; Z77.22 Contact with and (suspected) exposure to environmental tobacco smoke (acute) (chronic); D69.6 Thrombocytopenia, unspecified; I95.9 Hypotension, unspecified; K64.4 Residual hemorrhoidal skin tags; K64.8 Other hemorrhoids; Z99.2 Dependence on renal dialysis; Z80.41 Family history of malignant neoplasm of ovary; Z79.899 Other long term (current) drug therapy

== ENCOUNTER 2019-10-14 23:09 | Emergency (ER) | payer MEDICARE, OTHER ==
[~2019-10-14] VITALS: Ht 172.7 cm; Wt 72.6 kg
[~2019-10-14 23:09] MED LIST changes: +RENVELA800 MG PO
[2019-10-14 23:52] LABS: ABSOLUTE BASOPHILS 0.1 thou/uL (0.0-0.2); ABSOLUTE EOSINOPHILS 0.3 thou/uL (0.0-0.7); ABSOLUTE MONOCYTES 0.5 thou/uL (0.0-1.2); ABSOLUTE NEUTROPHILS 3.2 thou/uL (1.6-8.1); BASOPHILS 1.7 %; EOSINOPHILS 6.3 %; HEMATOCRIT 28.7 % (42.0-52.0); HEMOGLOBIN 9.1 gm/dL (14.0-18.0); LYMPHOCYTES 19.8 %; MCH 25.1 pg (26.0-34.0); MCHC 31.9 g/dL (28.0-37.0); MCV 78.9 fL (80.0-100.0); MONOCYTES 10.3 %; MPV 8.8 fl. (7.2-11.1); NUCLEATED RBCS 0 /100WBC; PLATELET COUNT* 206 thou/uL (150-400); POLYS 61.9 %; RBC 3.64 mil/uL (4.50-6.00); RDW-CV 16.2 % (10.5-14.5); WBC 5.2 thou/uL (4.0-11.0)
[2019-10-14 23:54] LABS: ANION GAP 12 mmol/L (7-16); BUN 37 mg/dL (7-18); CALCIUM 9.2 mg/dL (8.5-10.1); CHLORIDE 105 mmol/L (98-107); CO2 26 mmol/L (21-32); CREATININE 9.5 mg/dL (0.6-1.3); GLUCOSE 93 mg/dL (70-99); POTASSIUM 4.4 mmol/L (3.5-5.1); SODIUM 143 mmol/L (136-145)
[2019-10-15 00:04] LABS: INR 1.1; PROTIME 11.3 Seconds (9.20-11.50)
[2019-10-15 00:07] LABS: ALBUMIN 3.5 g/dL (3.4-5.0); ALKALINE PHOSPHATASE 61 U/L (46-116); LIPASE 53 U/L (73-393); NT-PRO BRAIN NAT PEPTIDE > 35000 pg/mL (<300); SGOT 12 U/L (15-37); SGPT 10 U/L (30-65); TOTAL BILIRUBIN 0.5 mg/dL (<0.1-1.0); TOTAL PROTEIN 6.5 g/dL (6.4-8.2)
[2019-10-15 01:45] LABS: INFLUENZA A ANTIGEN Negative (Negative); INFLUENZA B ANTIGEN Negative (Negative)
[2019-10-15 02:12] VITALS: BP 155/86
--- NOTE | 2019-10-16 13:59 | EKG ---
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 : 1945 Requested By: Jennifer Mckay Order Number: [id number] MD: Salvador Velazco Measurements Intervals [place] Rate: 74 P: -4 NM: 214 QRS: -72 QRSD: 150 T: 91 QT: 419 QTc: 465 Interpretive Statements Sinus rhythm Borderline prolonged NM interval Probable left atrial enlargement Left bundle branch block Baseline wander in lead(s) V3 Compared to ECG 07/24/2019 11:12:12 No significant changes Electronically Signed On 10-16-2019 13:58:39 CATTLE SHIPPER by Salvador Velazco [email or web address] <ELECTRONICALLY SIGNED> By: Salvador Velazco MD, [facility] 10/16/19 1358 2312 2312 Salvador Velazco MD, [facility] /EPI
== END 2019-10-15 02:10 | disposition home or self-care (01) ==
LOC: M.ERS 23:09
PROVIDERS: Emergency Medicine
DX: R05 Cough (principal); Z77.22 Contact with and (suspected) exposure to environmental tobacco smoke (acute) (chronic); I10 Essential (primary) hypertension; Z96.653 Presence of artificial knee joint, bilateral; Z99.2 Dependence on renal dialysis

== ENCOUNTER → 2019-11-14 | Outpatient (CLI) | payer MEDICARE, OTHER ==
--- NOTE | 2019-11-14 17:10 | 2DMMODE ---
[place] [address] 2 D/M-MODE ECHOCARDIOGRAM Name: SCHILLINGSHEKHAR PEEWEE Room: [facility]#: [id number] Admission: 11/14/19 Attend Phys: Salvador Giordano, Discharge: Date of : 41 Date of Service: 11/14/19 1709 Report #: [id number] THIS REPORT FOR: //name// APPROVED REPORT Study performed: 11/14/2019 07:52:32 EXAM: Comprehensive 2D, Doppler, and color-flow Echocardiogram Patient Location: Out-Patient BSA: 1.84 HR: 69 bpm BP: 150/70 mmHg Other Information Study Quality: Excellent Indications Aortic Valve Disease 2D Dimensions IVSd: 12.21 (7-11mm) LVOT Diam: 20.61 (18-24mm) LVDd: 65.17 mm PWd: 11.46 (7-11mm) Ascending Ao: 36.78 (22-36mm) LVDs: 41.94 (25-40mm) Aortic Root: 30.50 mm Volumes Left Atrial Volume (Systole) LA ESV Index: 43.40 mL/m2 Aortic Valve AoV Peak Roman.: 2.76 m/s AO Peak Gr.: 30.47 mmHg LVOT Max P.92 mmHg AO Mean Gr.: 17.67 mmHg LVOT Mean P.23 mmHg LVOT Max V: 1.65 m/s AO V2 VTI: 53.83 cm LVOT Mean V: 1.05 m/s IRIS (VTI): 2.07 cm2 LVOT V1 VTI: 33.34 cm Mitral Valve E/A Ratio: 0.59 MV Decel. Time: 310.79 ms MV E Max Roman.: 0.62 m/s MV PHT: 90.13 ms MVA (PHT): 2.44 cm2 [place] [address] 2 D/M-MODE ECHOCARDIOGRAM Name: SHEKHAR SCHILLING Room: [facility]#: [id number] Admission: 11/14/19 Attend Phys: Salvador Giordano, Discharge: Date of : 41 Date of Service: 11/14/19 1709 Report #: [id number] TDI E/Lateral E': 12.40 E/Medial E': 8.86 Medial E' Roman.: 0.07 m/s Lateral E' Roman.: 0.05 m/s Pulmonary Valve PV Peak Roman.: 1.14 m/s PV Peak Gr.: 5.17 mmHg Tricuspid Valve RAP Estimate: 5.00 mmHg TR Peak Gr.: 24.87 mmHg RVSP: 29.87 mmHg PA Pressure: 29.87 mmHg Left Ventricle Left ventricle is mildly dilated. There is left ventricular systolic dyssynergy consistent with underlying bundle branch block. Mild concentric left ventricular hypertrophy. Left ventricular systolic function is at the lower limits of normal. LVEF is 50-55%. Grade I - abnormal relaxation pattern. Right Ventricle The right ventricle is normal size. The right ventricular systolic function is normal. Atria Left atrium is moderately dilated. The right atrium size is normal. Aortic Valve Mild to moderate aortic valve sclerosis. No aortic regurgitation is present. Mild aortic stenosis. Mitral Valve The mitral valve is normal in structure. Moderate to severe mitral regurgitation No evidence of mitral valve stenosis. Tricuspid Valve The tricuspid valve is normal in structure. Mild tricuspid regurgitation. The RVSP is 35-40 mmHg. Pulmonic Valve The pulmonary valve is normal in structure. Mild pulmonic regurgitation. [place] [address] 2 D/M-MODE ECHOCARDIOGRAM Name: SHEKHAR SCHILLING PEEWEE Room: [facility]#: [id number] Admission: 11/14/19 Attend Phys: Salvador Giordano, Discharge: Date of : 41 Date of Service: 11/14/19 1709 Report #: [id number] The aortic root is normal in size. IVC is normal in size and collapses >50% with inspiration. Pericardium There is no pericardial effusion. <Conclusion> Left ventricle is mildly dilated. Mild concentric left ventricular hypertrophy. Left ventricular systolic function is at the lower limits of normal. LVEF is 50-55%. Grade I - abnormal relaxation pattern. There is left ventricular systolic dyssynergy consistent with underlying bundle branch block. Left atrium is moderately dilated. Mild to moderate aortic valve sclerosis. Mild aortic stenosis. Moderate to severe mitral regurgitation Mild tricuspid regurgitation. The RVSP is 35-40 mmHg. <ELECTRONICALLY SIGNED> By: Kye Ayoub MD, FACC 11/14/191708 08 08 Kye Aoyub MD, FACC /INF
== END ==
LOC: M.CRD 07:44
DX: I08.8 Other rheumatic multiple valve diseases (principal); J06.9 Acute upper respiratory infection, unspecified; R52 Pain, unspecified

== ENCOUNTER 2019-12-19 07:00 | Emergency (ER) | payer MEDICARE, OTHER ==
[~2019-12-19] VITALS: Ht 172.7 cm; Wt 72.6 kg
[2019-12-19 08:01] LABS: HEMATOCRIT 34.8 % (42.0-52.0); HEMOGLOBIN 11.3 gm/dL (14.0-18.0); MCH 24.7 pg (26.0-34.0); MCHC 32.4 g/dL (28.0-37.0); MCV 76.3 fL (80.0-100.0); MPV 9.6 fl. (7.2-11.1); NUCLEATED RBCS 0 /100WBC; PLATELET COUNT* 246 thou/uL (150-400); RBC 4.57 mil/uL (4.50-6.00); RDW-CV 17.3 % (10.5-14.5)
[2019-12-19 08:09] LABS: CALCIUM 8.8 mg/dL (8.5-10.1); CREATININE 8.6 mg/dL (0.6-1.3); POTASSIUM 4.2 mmol/L (3.5-5.1)
[2019-12-19 08:12] LABS: ALBUMIN 3.9 g/dL (3.4-5.0); TOTAL BILIRUBIN 0.5 mg/dL (<0.1-1.0); TOTAL PROTEIN 7.3 g/dL (6.4-8.2)
[2019-12-19 08:41] LABS: ABSOLUTE BASOPHILS 0.1 thou/uL (0.0-0.2); ABSOLUTE EOSINOPHILS 0.5 thou/uL (0.0-0.7); ABSOLUTE LYMPHOCYTES 1.3 thou/uL (0.8-5.3); ABSOLUTE MONOCYTES 0.2 thou/uL (0.0-1.2); PLATELET ESTIMATE ADEQUATE
[2019-12-19] MEDS ORDERED: PERCOCET 5-3251 EACH PO (09:20)
[2019-12-19] MEDS ORDERED: FLEXERIL PO (09:20)
[2019-12-19 09:55] VITALS: BP 183/94
--- NOTE | 2019-12-19 16:43 | EKG ---
[place] [address] ELECTROCARDIOGRAM REPORT Name: SHEKHAR SCHILLING Room: [facility]#: [id number] Admission: 12/19/19 Attend Phys: Discharge: 12/19/19 Date of : 41 Date of Service: 12/19/19 0746 Report #: [id number] THIS REPORT FOR: //name// [facility] ED Test Date: 2019-12-19 Test Time: 07:46:56 Pat Name: SHEKHAR SCHILLING Department: Room: Gender: M Office Mover: MS : 1945 Requested By: Harshad Lawson Order Number: [id number] MD: Salvador Velazco Measurements Intervals [place] Rate: 64 P: -35 ND: 235 QRS: -74 QRSD: 141 T: 89 QT: 444 QTc: 458 Interpretive Statements Sinus rhythm Prolonged ND interval Probable left atrial enlargement Nonspecific IVCD with LAD Left ventricular hypertrophy Anterior infarct, old Baseline wander in lead(s) III,aVF Compared to ECG 10/14/2019 no change Electronically Signed On 12-19-2019 16:42:32 DIETARY SUPERVISOR by Salvador Velazco [email or web address] <ELECTRONICALLY SIGNED> By: Salvador Velazco MD, FACC 12/19/19 1642 0746 0746 Salvador Velazco MD, FAC /EPI
== END 2019-12-19 09:55 | disposition home or self-care (01) ==
LOC: M.ERS 07:00
PROVIDERS: Family Medicine
DX: M54.9 Dorsalgia, unspecified (principal); I12.0 Hypertensive chronic kidney disease with stage 5 chronic kidney disease or end stage renal disease; N18.6 End stage renal disease; Z99.2 Dependence on renal dialysis; Z96.653 Presence of artificial knee joint, bilateral; Z98.890 Other specified postprocedural states; Z77.22 Contact with and (suspected) exposure to environmental tobacco smoke (acute) (chronic)